=== PATIENT | female | born 1975 | race Hispanic/Latino ===

== ENCOUNTER 2016-09-07 20:11 | Observation (INO) | payer OTHER ==
[2016-09-07 22:05] LABS: BASO % 0.3 % (0.0-2.0); EOS % 0.2 % (0.0-4.0); HEMOGLOBIN 11.8 g/dL (12.0-16.0); LYMPH % 8.6 % (20.0-40.0); MEAN CELL VOLUME 89.7 fl (81.0-99.0); MEAN CORPUSCULAR HEMOGLOBIN 28.6 pg (27.0-31.0); MEAN CORPUSCULAR HGB CONC 31.9 g/dL (33.0-37.0); MEAN PLATELET VOLUME 9.4 fl (7.2-11.7); MONO # 0.5 K/uL (0.0-0.8); MONO % 4.7 % (0.0-10.0); NEUT # 9.7 K/uL (1.8-7.0); NEUT % 86.2 % (50.0-75.0); PLATELET COUNT 216 K/uL (130-400); RBC 4.11 Mil/uL (3.80-5.20); RED CELL DISTRIBUTION WIDTH 13.7 % (11.5-14.5); WHITE BLOOD COUNT 11.2 K/uL (4.8-10.8)
[2016-09-07 22:12] LABS: ALB/GLOB RATIO 1.6 (1.0-2.1); ALBUMIN 4.4 g/dL (3.5-5.0); ALT/SGPT 28 U/L (9-52); AST/SGOT 30 U/L (14-36); BLOOD UREA NITROGEN 9 mg/dl (7-17); CALCIUM 9.3 mg/dL (8.4-10.2); GFR AFRICAN-AMERICAN > 60; GFR NON-AFRICAN AMERICAN > 60
--- NOTE | 2016-09-07 22:18 | ED PDOC ---
HPI: Altered Mental Status Time Seen by Provider: 09/07/16 20:20 Chief Complaint (Nursing): Altered Mental Status Chief Complaint (Provider): Altered Mental Status/Possible Seizure History Per: Patient Onset/Duration Of Symptoms: Days (x1) Additional History Per: EMS Associated Symptoms: Agitated, Combative Additional Complaint(s): Eneida Birmingham is a 41 year old female, with no past medical history, who presents to the emergency department via EMS due to possible seizure prior to arrival. however here Patient is agitated and aggressive, further information is unobtainable due to patient status. PMD: None provided Past Medical History Reviewed: Vital Signs, Unable To Obtain Vital Signs: Last Vital Signs Temp 98.0 F 09/07/16 20:14 Pulse 56 L 09/07/16 20:14 Resp 16 09/07/16 20:14 BP 111/41 L 09/07/16 20:14 Pulse Ox 98 09/07/16 20:14 - Family History Family History: States: Unknown Family Hx - Allergies Allergies/Adverse Reactions: Allergies Allergy/AdvReac Type Severity Reaction Status Date / Time Unobtainable Allergy Verified 09/07/16 20:14 Review of Systems ROS Statement: Except As Marked, All Systems Reviewed And Found Negative Neurological: Positive for: Altered Mental Status (agitated and aggressive) Physical Exam - Reviewed Nursing Documentation Reviewed: Yes Vital Signs Reviewed: Yes - Physical Exam Appears: Positive for: Well, Non-toxic, No Acute Distress Head Exam: Positive for: ATRAUMATIC, NORMAL INSPECTION, NORMOCEPHALIC Skin: Positive for: Normal Color, Warm, Dry Eye Exam: Positive for: Normal appearance ENT: Positive for: Normal ENT Inspection Neck: Positive for: Normal, Painless ROM, Supple Cardiovascular/Chest: Positive for: Regular Rate, Rhythm Respiratory: Positive for: CNT, Normal Breath Sounds Gastrointestinal/Abdominal: Positive for: Normal Exam, Bowel Sounds, Soft Extremity: Positive for: Normal ROM Neurologic/Psych: Positive for: Alert, Oriented, Mood/Affect (Agitated and aggressive) - Laboratory Results Result Diagrams: 09/07/16 21:30 09/07/16 21:30 - ECG O2 Sat by Pulse Oximetry: 98 (RA) Pulse Ox Interpretation: Normal Medical Decision Making Medical Decision Making: Initial Impression: Altered mental status/agitation Initial Plan: --Head w/o contrast --Alcohol serum --Comp Metabolic Panel --Drug screen, Urine --CBC w/ differential --Chest one view [RAD] --Haldol 5 mg IM --Ativan 2 mg IM --Urine culture --1: 1 Obs for suicide precaution --Restraint: violent or harm to self/other --reevaluation Scribe Attestation: Documented by Dominic Au, acting as a scribe for Mendez Javier MD. Provider Scribe Attestation: All medical record entries made by the Scribe were at my direction and personally dictated by me. I have reviewed the chart and agree that the record accurately reflects my personal performance of the history, physical exam, medical decision making, and the department course for this patient. I have also personally directed, reviewed, and agree with the discharge instructions and disposition. ED OBSERVATION Date of observation admission: 09/07/16 Time of observation admission: 22:20 - Observation admission statement Patient is being placed in observation because:: Patient is agitated, and aggressive - Goals of Observation Goals of observation are:: Patient sedated to alleviate aggressiveness - Progress Note Progress Note: pt needed restraints for agitation and aggression as pt attacking staff and flailing around so for her safety and safety of the ER staff and to alleviate her agitation. pt will be observed in the ER 09/08/16 00:37 CT Head FINDINGS: Brain: There is a deep white matter hypodensity adjacent to the posterior body of the right lateral ventricle. This could be secondary to chronic lacunar infarct, demyelinating disease or other inflammatory process. No hemorrhage. No edema. Ventricles: Unremarkable. No ventriculomegaly. Bones/joints: Unremarkable. No acute fracture. Soft tissues: Unremarkable. Sinuses: Unremarkable as visualized. No acute sinusitis. Mastoid air cells: Unremarkable as visualized. No mastoid effusion. IMPRESSION: No acute intracranial findings. There is a deep white matter hypodensity adjacent to the posterior body of the right lateral ventricle. This could be secondary to chronic lacunar infarct, demyelinating disease or other inflammatory process. 09/08/16 00:39 Chest x-ray as read by provider is negative for any acute diseases. 09/08/16 01:40 Upon re-evaluation, patient reports she does not remember anything that happened today; she reports the last thing she remembers is being on the train today. She denies having seizures before and states she has not drank alcohol in 2 weeks. re-exam is normal. pt denies any R arm pain. there are some old bruises on R inner upper arm but she denies pain. pt denies pain. throughout ER stay pt sleeping. Imaging and lab results discussed with patient and informed to follow up with neurologist, pt aware of CT results and needs for follow up with pcp/ neurologist for further evaluation for possible seizures. . Patient is aware and agreeable, stable for discharge home. pt with stable gait and normal neurologic exam. 09/08/16 05:38 Disposition - Clinical Impression Clinical Impression: Altered mental status - Patient ED Disposition Is Patient to be Admitted: No Counseled Patient/Family Regarding: Studies Performed, Diagnosis, Need For Followup - Disposition Disposition: Routine/Home Disposition Time: 22:05 Condition: IMPROVED
[2016-09-07 22:21] LABS: BARBITURATES, UR NEGATIVE (NEGATIVE); BENZODIAZEPINES, UR NEGATIVE (NEGATIVE); OPIATES, UR NEGATIVE (NEGATIVE); PHENCYCLIDINE, UR NEGATIVE (NEGATIVE)
[2016-09-07 23:28] LABS: ANISOCYTOSIS SLIGHT; BANDS 3 % (0-2); EOSINOPHIL 1 % (0-7); HYPOCHROMIC SLIGHT; LYMPHOCYTE 6 % (20-50); MONOCYTE 4 % (0-10); MYELOCYTE 2 % (0-0); NEUTROPHIL 84 % (42-75); PLATELET ESTIMATE NORMAL (NORMAL); TOTAL CELLS COUNTED 100
[2016-09-07 23:30] LABS: PLATELET CLUMPS PRESENT
[2016-09-08 00:50] LABS: SQUAMOUS EPITHIAL 9 /hpf (0-5); URINE BACTERIA RARE (<OCC); URINE BILIRUBIN NEGATIVE (NEGATIVE); URINE BLOOD NEGATIVE (NEGATIVE); URINE CLARITY CLOUDY (Clear); URINE COLOR YELLOW (YELLOW); URINE GLUCOSE (UA) NEG (Normal); URINE LEUKOCYTE ESTERASE NEG Leu/uL (Negative); URINE NITRATE NEGATIVE (NEGATIVE); URINE PROTEIN 30 mg/dL (NEGATIVE); URINE UROBILINOGEN 0.2-1.0 mg/dL (0.2-1.0)
[2016-09-08 01:52] VITALS: BP 109/61; PULSE 91; RESP 18; TEMP 98
[2016-09-08 05:43] VITALS: O2SAT 98
--- NOTE | 2016-09-08 07:53 | CT ---
PROCEDURE: CT HEAD WITHOUT CONTRAST. HISTORY: possible seizure COMPARISON: None available. TECHNIQUE: Axial computed tomography images were obtained through the head/brain without intravenous contrast. Coronal and sagittal reconstructed images. Radiation dose: Total exam DLP = 832.72 mGy-cm. This CT exam was performed using one or more of the following dose reduction techniques: Automated exposure control, adjustment of the mA and/or kV according to patient size, and/or use of iterative reconstruction technique. FINDINGS: HEMORRHAGE: No intracranial hemorrhage. BRAIN: No mass effect or edema. Small lacune or infarct adjacent to the posterior horn of the right lateral ventricle. VENTRICLES: Unremarkable. No hydrocephalus. CALVARIUM: Unremarkable. PARANASAL SINUSES: Unremarkable as visualized. No significant inflammatory changes. MASTOID AIR CELLS: Unremarkable as visualized. No inflammatory changes. OTHER FINDINGS: None. IMPRESSION: No acute intracranial abnormalities. No significant findings to account for the clinical presentation. Concordant results (preliminary interpretation) provided by [employer]. Procedure Completed: 22:27. Preliminary ([facility]) Report: Dictated and Authenticated: 23:00. Final Interpretation: 07:51. September 08, 2016.
--- NOTE | 2016-09-08 08:44 | RAD ---
PROCEDURE: CHEST RADIOGRAPH, 1 VIEW HISTORY: agitation COMPARISON: None available. FINDINGS: LUNGS: Clear. PLEURA: No pneumothorax or pleural fluid seen. CARDIOVASCULAR: No radiographic findings to suggest acute or significant cardiovascular disease. OSSEOUS STRUCTURES: No significant abnormalities. VISUALIZED UPPER ABDOMEN: Normal. OTHER FINDINGS: None. IMPRESSION: No active disease. No preliminary report provided by emergency department personnel.
== END 2016-09-08 01:43 | disposition home or self-care (01) ==
LOC: H.ER 20:11 → H.EROBSV 20:43
PROVIDERS: ADMIT Emergency Medicine; ATTEND Emergency Medicine
DX: R56.9 Unspecified convulsions (principal); R41.82 Altered mental status, unspecified